=== PATIENT | female | born 1975 | race Caucasian/White ===

== ENCOUNTER 2019-03-01 10:13 | Emergency (ER) | payer BC ==
[~2019-03-01] VITALS: Ht 160 cm; Wt 54.4 kg
--- NOTE | 2019-03-01 10:24 | NUR ---
AALIYAH RA 89 FROM HOME FOR SEIZURES "INITIALLY WAS HAVING INVOLUNTARY MUSCLE MOVEMENTS THEN HAD SEIZURES" BS-56, GIVEN OJ. REPEAT BS-89. TO ER BED 4, SEIZURE PRECAUTIONS APPLIED. HOOKED TO MONITOR, CHANGED TO DR BARBARA DONALDSON AT BEDSIDE.
[2019-03-01] MEDS ORDERED: IV NS 0.9% 1,000 ML BAG IV ONE (10:30)
[2019-03-01 10:45] LABS: BASOPHILS % (AUTO) 0.3 % (0.0-2.0); HEMATOCRIT 41 % (33-45); HEMOGLOBIN 13.8 g/dL (11.5-14.8); LYMPHOCYTES % (AUTO) 25.9 % (20.0-44.0); MEAN CORPUSCULAR HGB CONC 33 g/dl (31.0-36.0); MEAN CORPUSCULAR VOLUME 91 fL (82-100); MONOCYTES # (AUTO) 0.4 /CMM (0.1-1.30); MONOCYTES % (AUTO) 5.6 % (2.0-12.0); NEUTROPHILS # (AUTO) 5.3 /CMM (1.8-8.9); NEUTROPHILS % (AUTO) 67.2 % (43.0-81.0); PLATELET COUNT (AUTO) 316 /CMM (150-450); RED BLOOD CELL COUNT(AUTO) 4.58 MIL/uL (4.0-5.2); WHITE BLOOD COUNT (AUTO) 7.8 K/uL (4.3-11.0)
[2019-03-01 11:01] LABS: CALCIUM, SERUM 8.5 mg/dL (8.5-10.1); CARBON DIOXIDE 19 mmol/L (21-32); CHLORIDE 104 mmol/L (98-107); CREATININE 1.3 mg/dL (0.6-1.3); GLUCOSE 88 mg/dL (74-106); POTASSIUM 3.5 mmol/L (3.5-5.1); SODIUM SERUM 139 mmol/L (136-145); UREA NITROGEN, BLOOD 8 mg/dL (7-18)
[2019-03-01 11:04] LABS: ALANINE AMINOTRANSFERASE 14 U/L (12-78); ALBUMIN 3.7 g/dL (3.4-5.0); ALKALINE PHOSPHATASE 41 U/L (46-116); ASPARTATE AMINOTRANSFERASE 18 U/L (15-37); BILIRUBIN,DIRECT 0.1 mg/dL (0.0-0.2); BILIRUBIN,TOTAL 0.2 mg/dL (0.2-1.0); TOTAL PROTEIN, SERUM 6.7 g/dL (6.4-8.2)
--- NOTE | 2019-03-01 11:28 | NUR ---
PATIENT VERBALIZED SHE HAD HYSTERECTOMY. MADE MD AWARE. NO NEED FOR URINE TEST.
--- NOTE | 2019-03-01 11:31 | NUR ---
PATIENT WHEELED OUT VIA GURNEY FOR CT SCAN
[2019-03-01] MEDS ORDERED: IOHEXOL-350 100 ML VIAL IV ONE (11:33)
[2019-03-01] MEDS ORDERED: CT SWABBABLE VALVE TRANS SET 1 EA INFUS.SET MC ONE (11:33)
--- NOTE | 2019-03-01 12:44 | NUR ---
IV removed. Catheter intact and site benign. Pressure and 4x4 applied to site. No bleeding noted.Patient discharged to home with in stable condition. Written and verbal after care instructions given. Patient verbalizes understanding of instruction.
[2019-03-01 12:45] VITALS: BP 132/87
== END 2019-03-01 12:44 | disposition home or self-care (01) ==
LOC: ER 10:15
DX: R56.9 Unspecified convulsions (principal); R55 Syncope and collapse; F41.9 Anxiety disorder, unspecified; F32.9 Major depressive disorder, single episode, unspecified; R00.0 Tachycardia, unspecified; R40.4 Transient alteration of awareness; Z90.710 Acquired absence of both cervix and uterus
CPT/HCPCS: 36415; 70450; 71045; 71275; 73610; 80048; 80076; 82962; 84484; 85025; 85378; 93005; 96360; 99284; J7030; Q9967